=== PATIENT | female | born 1990 | race African-American/Black ===

== ENCOUNTER 2023-12-23 23:25 | Inpatient (IN) | payer BC ==
[~2023-12-23] VITALS: Ht 157.5 cm; Wt 91.2 kg
[2023-12-23] MEDS ORDERED: SODIUM CHLORIDE FLUSH 10 ML SYR IV PRN (23:45)
[2023-12-24] VITALS (7 sets, daily range): BP systolic 118–140; BP diastolic 75–90; PULSE 80–82; RESP 17–20; TEMP 98–98.9; O2SAT 100
[2023-12-24] MEDS ORDERED: METOPROLOL TARTRATE 50 MG TAB PO ONE
[2023-12-24] MEDS ORDERED: METFORMIN HCL1000 MG PO (00:07)
[2023-12-24] MEDS ORDERED: LISINOPRIL20 MG PO (00:07)
[2023-12-24 00:11] LABS: BASOPHILS % 0.3 % (0.0-1.0); EOSINOPHILS # (AUTO) 0.1 (0.0-0.4); EOSINOPHILS % 0.8 % (0.0-6.0); HEMATOCRIT 40.3 % (34.2-44.1); HEMOGLOBIN 12.4 g/dL (12.0-16.0); LYMPHOCYTES # (AUTO) 2.5 (1.0-3.2); MEAN CORPUSCULAR HEMOGLOBIN 25.2 pg (28-32); MEAN CORPUSCULAR HGB CONC 30.8 g/dL (31-35); MEAN CORPUSCULAR VOLUME 81.7 fL (81-99); MONOCYTES # (AUTO) 0.6 (0.2-0.8); MONOCYTES % 7.5 % (4.4-11.3); NEUTROPHILS # (AUTO) 4.8 (2.1-6.9); NEUTROPHILS % 60.1 % (38.7-80.0); PLATELET COUNT 242 x10e3/uL (140-360); RED BLOOD COUNT 4.93 x10e6/uL (3.6-5.1)
[2023-12-24 00:32] LABS: ALANINE AMINOTRANSFERASE 12 IU/L (0-55); ALBUMIN 3.7 g/dL (3.5-5.0); ANION GAP 13.5 mmol/L (8-16); BILIRUBIN,TOTAL 0.3 mg/dL (0.2-1.2); BLOOD UREA NITROGEN 14 mg/dL (7-26); BUN/CREATININE RATIO 13 (6-25); CALCIUM 9.2 mg/dL (8.4-10.2); CARBON DIOXIDE 24 mmol/L (22-29); CHLORIDE 98 mmol/L (98-107); CREATININE, SERUM 1.09 mg/dL (0.57-1.11); EST GLOMERULAR FILTRATION RATE 68 ML/MIN (>=60); POTASSIUM 3.5 mmol/L (3.5-5.1); SODIUM 132 mmol/L (136-145); TOTAL PROTEIN 7.4 g/dL (6.5-8.1)
[2023-12-24 00:38] LABS: TROPONIN I < 0.001 ng/mL (0-0.300)
[2023-12-24] MEDS: LABETALOL HCL 5 MG/ML 20ML VIAL IV STA (00:38)
[2023-12-24 00:39] LABS: GLUCOSE 423 mg/dL (74-118)
[2023-12-24 00:40] LABS: AMPHETAMINES SCREEN,URINE NEGATIVE (NEGATIVE); BENZODIAZEPINES SCREEN,URINE NEGATIVE (NEGATIVE); CANNABINOIDS SCREEN,URINE NEGATIVE (NEGATIVE); COCAINE SCREEN,URINE NEGATIVE (NEGATIVE); METHADONE SCREEN, URINE NEGATIVE (NEGATIVE); OPIATES SCREEN,URINE NEGATIVE (NEGATIVE); PHENCYCLIDINE SCREEN,URINE NEGATIVE (NEGATIVE)
[2023-12-24 01:03] LABS: ALKALINE PHOSPHATASE 55 IU/L (40-150)
[2023-12-24 01:26] LABS: B-TYPE NATRIURETIC PEPTIDE2 < 10.0 pg/mL (0-100)
[2023-12-24] MEDS ORDERED: HYDRALAZINE HCL 20 MG/ML VIAL IV PRN ×2 (02:00→15:30)
[2023-12-24] MEDS ORDERED: SODIUM CHLORIDE FLUSH 10 ML SYR INJ PRN (02:00)
[2023-12-24] MEDS ORDERED: ONDANSETRON HCL INJ 2MG/ML 2ML 2 MG/ML VIAL IV PRN (02:00)
[2023-12-24] MEDS: ASPIRIN 81 MG CHEW TAB PO ONE (02:48)
[2023-12-24] MEDS ORDERED: LOSARTAN-HCTZ1 EAC1 PO (04:38)
[2023-12-24] MEDS ORDERED: METOPROLOL TART50 MG PO (04:38)
[2023-12-24 08:19] LABS: BASOPHILS % 0.2 % (0.0-1.0); EOSINOPHILS % 0.7 % (0.0-6.0); HEMATOCRIT 39.6 % (34.2-44.1); HEMOGLOBIN 12.9 g/dL (12.0-16.0); LYMPHOCYTES # (AUTO) 1.5 (1.0-3.2); LYMPHOCYTES % 25.9 % (18.0-39.1); MEAN CORPUSCULAR HEMOGLOBIN 25.4 pg (28-32); MEAN CORPUSCULAR HGB CONC 32.6 g/dL (31-35); MEAN CORPUSCULAR VOLUME 78.1 fL (81-99); MONOCYTES # (AUTO) 0.5 (0.2-0.8); MONOCYTES % 8.4 % (4.4-11.3); NEUTROPHILS # (AUTO) 3.7 (2.1-6.9); NEUTROPHILS % 64.6 % (38.7-80.0); PLATELET COUNT 236 x10e3/uL (140-360); RED BLOOD COUNT 5.07 x10e6/uL (3.6-5.1); RED CELL DISTRIBUTION WIDTH 14.2 % (11.7-14.4); WHITE BLOOD COUNT 5.72 x10e3/uL (4.8-10.8)
[2023-12-24] MEDS: METOPROLOL TARTRATE 50 MG TAB PO SCH (08:25)
[2023-12-24] MEDS: LISINOPRIL 20 MG TAB PO SCH (08:26)
[2023-12-24] MEDS: NIFEDIPINE CR 30 MG TAB PO SCH (08:26)
[2023-12-24] MEDS: METFORMIN HCL 500 MG TAB PO SCH (08:26)
[2023-12-24] MEDS ORDERED: DEXTROSE 50% SYRINGE 50 ML IV PRN ×3 (08:30→15:30)
[2023-12-24 08:48] LABS: TROPONIN I 0.006 ng/mL (0-0.300)
[2023-12-24] MEDS ORDERED: NON-FORMULARY MEDICATION (Losartan/Hydrochlorothiazide (Losartan-Hctz 100-25 Mg Tab) 1 TAB PO SCH (09:00)
[2023-12-24 09:06] LABS: ANION GAP 15.8 mmol/L (8-16); CALCIUM 9.3 mg/dL (8.4-10.2); CREATININE, SERUM 0.95 mg/dL (0.57-1.11); POTASSIUM 3.8 mmol/L (3.5-5.1)
[2023-12-24] MEDS: INSULIN REGULAR, HUMAN 100 UNIT/1 ML SQ SCH (11:30)
[2023-12-24] MEDS ORDERED: DOCUSATE SODIUM 100 MG CAP PO PRN (15:30)
[2023-12-24] MEDS ORDERED: POTASSIUM CHLORIDE 20 MEQ TAB CR PO PRN (15:30)
[2023-12-24] MEDS ORDERED: BENZONATATE 100 MG CAP PO PRN (15:30)
[2023-12-24] MEDS ORDERED: ACETAMINOPHEN 325 MG TAB PO PRN (15:30)
[2023-12-24] MEDS ORDERED: LIDOCAINE 4% PATCH TP PRN (15:30)
[2023-12-24] MEDS ORDERED: MELATONIN 5 MG TABLET PO PRN (15:30)
[2023-12-24] MEDS ORDERED: SIMETHICONE 80 MG CHEW PO PRN (15:30)
[2023-12-24] MEDS ORDERED: ALBUTEROL/IPRATROPIUM 3 ML NEB NEB PRN (15:30)
[2023-12-24] MEDS ORDERED: DIPHENHYDRAMINE HCL 25 MG CAP PO PRN (15:30)
[2023-12-24] MEDS: ENOXAPARIN SOD INJ 40 MG/0.4 ML SYR SC SCH (16:59)
[2023-12-24] MEDS: INSULIN LISPRO 100 UNIT/1 ML 3ML VIAL SQ SCH ×2 (17:06→17:07)
[2023-12-24 17:19] LABS: TROPONIN I 0.01 ng/mL (0-0.300)
[2023-12-24] MEDS: INSULIN GLARGINE 100 UNITS/ML VIAL SQ SCH (21:46)
[2023-12-25] VITALS: BP 109/66; PULSE 84; RESP 18; TEMP 98.5; O2SAT 98
[2023-12-25 04:00] VITALS: BP 103/65; PULSE 85; RESP 18; TEMP 98.3; O2SAT 100
[2023-12-25 05:40] LABS: BASOPHILS % 0.1 % (0.0-1.0); EOSINOPHILS % 0.6 % (0.0-6.0); HEMATOCRIT 43.5 % (34.2-44.1); HEMOGLOBIN 13.4 g/dL (12.0-16.0); LYMPHOCYTES # (AUTO) 2.2 (1.0-3.2); LYMPHOCYTES % 30.6 % (18.0-39.1); MEAN CORPUSCULAR HGB CONC 30.8 g/dL (31-35); MEAN CORPUSCULAR VOLUME 81.2 fL (81-99); MONOCYTES # (AUTO) 0.5 (0.2-0.8); MONOCYTES % 6.4 % (4.4-11.3); NEUTROPHILS # (AUTO) 4.4 (2.1-6.9); PLATELET COUNT 245 x10e3/uL (140-360); RED BLOOD COUNT 5.36 x10e6/uL (3.6-5.1); RED CELL DISTRIBUTION WIDTH 14.2 % (11.7-14.4); WHITE BLOOD COUNT 7.06 x10e3/uL (4.8-10.8)
[2023-12-25 06:04] LABS: ALBUMIN 3.5 g/dL (3.5-5.0); ANION GAP 15.9 mmol/L (8-16); BILIRUBIN,TOTAL 0.4 mg/dL (0.2-1.2); CALCIUM 9.6 mg/dL (8.4-10.2); CREATININE, SERUM 0.94 mg/dL (0.57-1.11); POTASSIUM 3.9 mmol/L (3.5-5.1); TOTAL PROTEIN 7.1 g/dL (6.5-8.1)
[2023-12-25 06:28] LABS: CHOL/HDL RATIO 4.4 (3.0-3.6); MAGNESIUM 1.6 MG/DL (1.3-2.1)
[2023-12-25 06:50] LABS: THYROID STIMULATING HORMONE 0.862 uIU/mL (0.350-4.940)
[2023-12-25 07:40] VITALS: BP 126/68; PULSE 80; RESP 21; TEMP 97.9; O2SAT 100
[2023-12-25 07:52] VITALS: BP 126/68; PULSE 80; RESP 21; TEMP 97.9; O2SAT 100
[2023-12-25 11:44] VITALS: BP 156/85; PULSE 79; RESP 18; TEMP 98.3; O2SAT 100
== END 2023-12-25 14:44 | disposition home or self-care (01) | DRG 305 ==
LOC: ER 23:31 → ERHOLD 12-24 02:06 → MED/SURG 12-24 12:47
PROVIDERS: ADMIT Internal Medicine; ATTEND Internal Medicine
DX: I16.0 Hypertensive urgency (principal); I10 Essential (primary) hypertension; R07.89 Other chest pain; E11.65 Type 2 diabetes mellitus with hyperglycemia; Z79.4 Long term (current) use of insulin; Z79.84 Long term (current) use of oral hypoglycemic drugs; E66.01 Morbid (severe) obesity due to excess calories; Z68.36 Body mass index [BMI] 36.0-36.9, adult; Z79.899 Other long term (current) drug therapy
CPT/HCPCS: 36415; 71046; 80048; 80053; 80061; 80307; 82550; 82948; 83036; 83735; 83880; 84443; 84484; 84702; 85025; 93005; 94760; 99284; J1650